=== PATIENT | male | born 1965 | race Caucasian/White ===

== ENCOUNTER 2021-04-25 10:50 | Emergency (ER) | payer OTHER ==
[~2021-04-25] VITALS: Ht 175.3 cm; Wt 89.8 kg
[2021-04-25 11:42] LABS: CALCIUM 9.3 mg/dL (8.5-10.1); CREATININE 0.9 mg/dL (0.7-1.3); POTASSIUM 5.4 mmol/L (3.5-5.1)
[2021-04-25 11:49] LABS: ABSOLUTE NEUTROPHILS 10.6 thou/uL (1.4-8.2); BASOPHILS 0.3 % (0.0-2.0); EOSINOPHILS 1.9 % (0.0-3.0); HEMATOCRIT 41.2 % (42.0-52.0); HEMOGLOBIN 14.4 gm/dL (14.0-18.0); LYMPHOCYTES 11.9 % (24.0-44.0); MCH 32.3 pg (26.0-34.0); MCHC 34.9 g/dL (28.0-37.0); MCV 92.5 fL (80.0-100.0); MONOCYTES 5.4 % (1.0-8.0); PLATELET COUNT 227 thou/uL (150-400); POLYS 80.5 % (36.0-66.0); RBC 4.45 mil/uL (4.50-6.00); RDW 12.5 % (10.5-14.5); WBC 13.2 thou/uL (4.0-11.0)
[2021-04-25 13:33] VITALS: BP 122/59
== END 2021-04-25 13:34 | disposition short-term general hospital (02) ==
LOC: ER 10:50
PROVIDERS: Emergency Medicine
DX: S36.039A Unspecified laceration of spleen, initial encounter (principal); V89.2XXA Person injured in unspecified motor-vehicle accident, traffic, initial encounter; Y93.89 Activity, other specified; Y92.89 Other specified places as the place of occurrence of the external cause; Y99.8 Other external cause status